=== PATIENT | female | born 1955 | race African-American/Black ===

== ENCOUNTER 2017-08-27 23:10 | Emergency (ER) | payer MEDICARE, MEDICAID ==
[~2017-08-27] VITALS: Ht 167.6 cm; Wt 85.0 kg
[2017-08-28] LABS: CLARITY URINE CLEAR (CLEAR); COLOR URINE YELLOW (YELLOW); KETONES URINE NEGATIVE (NEGATIVE); LEUKOCYTE ESTERASE URINE TRACE (NEGATIVE); NITRITE URINE NEGATIVE (NEGATIVE); OCCULT BLOOD URINE NEGATIVE (NEGATIVE); PROTEIN URINE NEGATIVE (NEGATIVE); SPECIFIC GRAVITY URINE 1.012 (1.005-1.030); UROBILINOGEN URINE 0.2 E.U./dL (0.2-1.0)
[2017-08-28] MEDS ORDERED: ALTEPLASE 100MG/VIAL IV STA (00:18)
[2017-08-28 00:25] LABS: BASOPHILS % 2.9 % (0.0-2.0); EOSINOPHILS % 5.7 % (0.0-5.0); HEMATOCRIT. 32.5 % (36.0-48.0); HEMOGLOBIN. 10.8 g/dL (12.0-16.0); LYMPHOCYTES % 11.8 % (20.0-50.0); MEAN CORPUSCULAR HEMOGLOBIN 32.2 pg (28.0-32.0); MEAN CORPUSCULAR VOLUME 96.5 fL (81.0-99.0); MEAN PLATELET VOLUME 8.8 fl (7.4-10.4); MONOCYTES % 10.3 % (2.0-8.0); NEUTROPHILS % 69.3 % (40.0-76.0); PLATELET 261 x1000/uL (130-400); RED BLOOD CELL COUNT 3.37 mill/uL (4.2-5.4); RED CELL DISTRIBUTION WIDTH 14.5 % (11.6-14.6)
[2017-08-28 00:29] LABS: *AMPHETAMINES SCREEN URINE NEGATIVE (NEGATIVE); *BARBITURATES SCREEN URINE NEGATIVE (NEGATIVE); *BENZODIAZEPINES SCREEN URINE NEGATIVE (NEGATIVE); *COCAINE SCREEN URINE NEGATIVE (NEGATIVE); CANNABINOID URINE SCREEN NEGATIVE (NEGATIVE); METHADONE URINE SCREEN NEGATIVE (NEGATIVE); OPIATES URINE SCREEN NEGATIVE (NEGATIVE); PHENCYCLIDINE URINE SCREEN NEGATIVE (NEGATIVE)
[2017-08-28] MEDS ORDERED: ALTEPLASE 50MG/VIAL IV SCH (00:33)
[2017-08-28 00:41] LABS: CARBON DIOXIDE 28 mEq/L (21-32); CHLORIDE 110 mEq/L (98-107); ETHANOL BLOOD < 10 mg/dL; LDL CHOLESTEROL 106 mg/dL (5-100); TROPONIN I < 0.02 ng/mL (0.00-0.04)
[2017-08-28 01:50] VITALS: BP 127/70
[2017-08-28] MEDS ORDERED: IOHEXOL-350 100 ML BOTTLE ONE (02:37)
[2017-08-28] MEDS ORDERED: ALTEPLASE IV SCH (12:37)
== END 2017-08-28 02:13 | disposition short-term general hospital (02) ==
LOC: ER 23:10 → CANBEDREQ 08-28 04:46
DX: I63.9 Cerebral infarction, unspecified (principal); J45.909 Unspecified asthma, uncomplicated
CPT/HCPCS: 36415; 37195; 70450; 70496; 70498; 71010; 80053; 80305; 81001; 82962; 83721; 84484; 85025; 85610; 93005; 99291; G0482; J2997; Q9967; 81003

== ENCOUNTER 2022-05-19 11:52 | Emergency (ER) | payer MEDICARE, MEDICAID ==
[~2022-05-19] VITALS: Ht 157.5 cm; Wt 78.0 kg
[2022-05-19] MEDS ORDERED: HYDROCODONE/ACETAMINOPHEN 5/325MG TABLET PO ONE (14:15)
[2022-05-19] MEDS ORDERED: HYDR-4001 MT (14:26)
[2022-05-19 14:52] VITALS: BP 126/85
== END 2022-05-19 14:54 | disposition home or self-care (01) ==
LOC: ER 13:46
DX: R07.89 Other chest pain (principal); R10.9 Unspecified abdominal pain; I10 Essential (primary) hypertension; J45.909 Unspecified asthma, uncomplicated; M19.90 Unspecified osteoarthritis, unspecified site; V43.62XA Car passenger injured in collision with other type car in traffic accident, initial encounter; Y93.89 Activity, other specified; Y92.410 Unspecified street and highway as the place of occurrence of the external cause
CPT/HCPCS: 71120; 76705; 93880; 99283

== ENCOUNTER 2025-02-04 20:06 | Emergency (ER) | payer MEDICARE, MEDICAID ==
[~2025-02-04] VITALS: Ht 157.5 cm; Wt 69.0 kg
[~2025-02-04 20:06] MED LIST: HYDR-4001 MT
[2025-02-04 20:14] VITALS: O2SAT 100
[2025-02-05] MEDS: ACETAMINOPHEN 325MG TABLET PO ONE (00:24)
[2025-02-05] MEDS ORDERED: BO1 TP (01:39)
[2025-02-05] MEDS ORDERED: ACET-2708 PO (01:39)
[2025-02-05] MEDS ORDERED: AMOX1TAB16 MT (01:39)
[2025-02-05] MEDS: BACITRACIN ZINC OINT UDPKT TOP ONE (01:42)
[2025-02-05 03:01] VITALS: BP 166/73; PULSE 76; RESP 18; TEMP 37; O2SAT 98
== END 2025-02-05 03:00 | disposition home or self-care (01) ==
LOC: ER 20:06
DX: S50.11XA Contusion of right forearm, initial encounter (principal); J45.909 Unspecified asthma, uncomplicated; I10 Essential (primary) hypertension; I48.91 Unspecified atrial fibrillation; Z96.649 Presence of unspecified artificial hip joint; W54.0XXA Bitten by dog, initial encounter; Y93.89 Activity, other specified; Y92.89 Other specified places as the place of occurrence of the external cause; Y99.8 Other external cause status
CPT/HCPCS: 73090; 99283